=== PATIENT | male | born 1950 | race Caucasian/White ===

== ENCOUNTER 2023-12-31 15:21 | Emergency (ER) | payer SELFPAY ==
--- NOTE | ~2023-12-31 | XR_ITS ---
EXAM: XR foot LT min 3V DATE: 12/31/2023 16:06 HISTORY: infected toe, 2ND DIGIT . COMPARISON: None available. FINDINGS: Normal mineralization. No fracture or dislocation. No lytic or blastic lesion. Moderate Ac hilles enthesopathy. Mild degenerative changes at the first MTP joint and multiple midfoot joints. No erosion or periosteal change. Vascular calcifications. IMPRESSION: No acute osseous finding in the left foot. Specifically there is no radiographic evidence of osteomyelitis. Reviewed, dictated and finalized at location K. SERVICE FLOORPERSON
[2023-12-31 15:23] VITALS: BP 101/65; PULSE 80; RESP 20; TEMP 36; O2SAT 100
--- NOTE | 2023-12-31 15:41 | ED.GENADULT ---
HPI - General Adult General Chief complaint: Wound/Laceration <Jennifer Vernon APRN - Last Filed: 12/31/23 15:43> Stated complaint: infected foot <Jennifer Vernon APRN - Last Filed: 12/31/23 15:43> Time Seen by Provider: 12/31/23 15:41 <Jennifer Vernon SEPARATOR OPERATOR - Last Filed: 12/31/23 15:43> Focused HPI: Charmaine Ortega is a 73 y/o male who presents with complains of left second toe infection for about 2 weeks, he states he has a hx of DM but does not take any medications. GENERAL: Well-appearing, well-nourished, and in no acute distress. HEAD: Normocephalic, atraumatic. CHEST: Clear to auscultation. ?No respiratory distress. HEART: Regular rate and rhythm.? NEURO: ?Alert and oriented x3. Patient screened in triage and initial orders placed.? ?Additional care and disposition to be based upon?diagnostic testing and treatment. <Jennifer Vernon SEPARATOR OPERATOR - Last Filed: 12/31/23 15:43> History of Present Illness HPI narrative: Patient is a 73-year-old male who presents ER with a wound to his left 2nd toe. It has been developing over last 2 weeks. He is wearing some ill-fitting shoes but has since thrown those waves and got new ones. He reports that he was walking around when he stopped at a restoration test for help. He is currently homeless. He is a . [facility]. No fevers or chills or sweats. Denies thick purulent drainage. No lymphangitic streaking. <Joaquín De La Cruz MD - Last Filed: 12/31/23 17:28> Related Data Allergies/adverse reactions: Allergies Allergy/AdvReac Type Severity Reaction Status Date / Time No Known Allergies Allergy Verified 12/31/23 16:33 <Jennifer Vernon APRN - Last Filed: 12/31/23 15:43> Review of Systems Review of Systems: All systems reviewed & are unremarkable except as noted in HPI and below <Joaquín De La Cruz MD - Last Filed: 12/31/23 17:28> Constitutional: Constitutional: Denies chills, Denies fatigue and Denies fever(s) <Joaquín De La Cruz MD - Last Filed: 12/31/23 17:28> Cardiovascular: Cardiovascular: Denies chest pain, Denies rapid heart rate and Denies radiating jaw, neck or arm pain <Joaquín De La Cruz MD - Last Filed: 12/31/23 17:28> Respiratory: Respiratory: Denies cough and Denies dyspnea <Joaquín De La Cruz MD - Last Filed: 12/31/23 17:28> Integumentary/Breasts: Skin/Breast: Denies pruritus, Denies erythema, Denies rash and Reports skin ulcer <Joaquín De La Cruz MD - Last Filed: 12/31/23 17:28> [facility] Past Medical History Medical History: Medical History (Updated 12/31/23 @ 17:25 by Joaquín De La Cruz MD) Diabetes <Jennifer Vernon, SEPARATOR OPERATOR - Last Filed: 12/31/23 15:43> Social History Social History: Social History (Updated 12/31/23 @ 17:25 by Joaquín De La Cruz MD) Social History: , homeless <Jennifer Vernon, SEPARATOR OPERATOR - Last Filed: 12/31/23 15:43> Exam Narrative: GENERAL: Well-appearing, well-nourished, and in no acute distress. HEAD: Normocephalic, atraumatic. CHEST: Clear to auscultation. No respiratory distress. HEART: Regular rate and rhythm. Normal peripheral pulses. EXTREMITIES: Normal range of motion. Mild edema to the dorsum left foot compared to the right. SKIN: Warm, dry, no rash. ulceration of the 2nd toe on the dorsal aspect medially. No exposure bone. No purulent drainage there is some yellow weeping. Mild breakdown of the skin around it where there is slight erythema but no overt warmth. No lymphangitic streaking. NEURO: Alert and oriented x3. PSYCH: Normal mood and affect. <Joaquín De La Cruz MD - Last Filed: 12/31/23 17:28> Course Course Emergency Course: Labs reassuring. Blood sugar normal. Will start outpatient oral medication for this wound. He will need follow-up with wound care and I have given the phone number. He also reports he will try to call a doctor at [facility] where he gets his care. <Joaquín De La Cruz MD - Last Filed: 12/31/23 17:2
--- NOTE | 2023-12-31 16:27 | PC.NURSE ---
started IV and obtained blood work. pt demanding IV be taken out due to discomfort. IV removed. blood sent to lab.
[2023-12-31 16:32] LABS: Basophils Absolute Auto 0.1 K/mm3 (0.0-0.1); Basophils Percent Auto 0.8 % (0.2-1.2); Eosinophils Absolute Auto 0.2 K/mm3 (0-0.3); Eosinophils Percent Auto 2.5 % (0-4.4); Hematocrit 39.5 % (42.0-52.0); Hemoglobin 12.5 g/dL (14.0-18.0); Immature Granulocyte Absolute 0.06 K/mm3 (0.00-0.031); Immature Granulocyte Percent A 0.6 % (0-0.5); Lymphocytes Absolute Auto 3.02 K/mm3 (0.9-3.2); Lymphocytes Percent Auto 31.7 % (18.3-44.2); Mean Corpuscular HGB Conc 31.6 g/dl (32-36); Mean Corpuscular Hemoglobin 30.3 pg (26-34); Mean Corpuscular Volume 95.6 fl (80-100); Mean Platelet Volume 9.4 fl (7.4-10.4); Monocytes Absolute Auto 0.7 K/mm3 (0.1-0.6); Neutrophils Absolute Auto 5.5 K/mm3 (1.3-6.7); Neutrophils Percent Auto 57.4 % (45.5-73.1); Platelet Count Result 262 k/mm3 (150-375); Red Blood Count 4.13 M/mm3 (4.6-6.20); Red Cell Distribution Width 14.2 % (11.5-14.5); White Blood Count 9.5 K/mm3 (4.5-10.0)
[2023-12-31 16:42] LABS: Alanine Aminotransferase 14 U/L (6-50); Albumin Level 3.7 g/dL (3.5-5.1); Alkaline Phosphatase 94 U/L (38-126); Anion Gap 5 mmol/L (8-16); Aspartate Amino Transferase 18 U/L (17-59); Bilirubin,Total 0.6 mg/dL (0.2-1.3); Blood Urea Nitrogen 12 mg/dL (9-20); Calcium 9.1 mg/dL (8.4-10.2); Carbon Dioxide 28 mmol/L (22-30); Chloride 103 mmol/L (98-107); Estimated Glomerular Filt Rate > 60; Glucose 110 mg/dL (65-110); Potassium 3.7 mmol/L (3.4-5.0); Sodium 136 mmol/L (137-145)
[2023-12-31 16:43] LABS: Lactic Acid Reflex 1.8 mmol/L (0.7-2.0)
== END 2023-12-31 17:47 | disposition home or self-care (01) ==
LOC: ANHED 17:22
PROVIDERS: Nurse Practitioner Family; Emergency Provider Emergency Medicine
DX: E11.621 Type 2 diabetes mellitus with foot ulcer (principal); L97.529 Non-pressure chronic ulcer of other part of left foot with unspecified severity; Z59.00 Homelessness unspecified
CPT/HCPCS: 36415; 73630; 80053; 83605; 85025; 99283

== ENCOUNTER 2024-01-07 15:47 | Emergency (ER) | payer SELFPAY ==
[2024-01-07 15:51] VITALS: BP 122/67; PULSE 110; RESP 18; TEMP 36.5; O2SAT 97
--- NOTE | 2024-01-07 15:59 | ECG_ITS ---
Measurements Intervals [place] Rate: 93 P: 60 IL: 151 QRS: -9 QRSD: 80 T: 31 QT: 335 QTc: 418 Interpretive Statements SINUS RHYTHM BASELINE ARTIFACT- II, III, AVR, AVL, AVF NORMAL ECG NO PREVIOUS ECG AVAILABLE FOR COMPARISON Electronically Signed On 01-07-2024 17:05:28 CDT by Chago Cortes D.O.
[2024-01-07 16:42] LABS: Basophils Absolute Auto 0.1 K/mm3 (0.0-0.1); Basophils Percent Auto 1.2 % (0.2-1.2); Eosinophils Absolute Auto 0.1 K/mm3 (0-0.3); Eosinophils Percent Auto 0.6 % (0-4.4); Hematocrit 37.1 % (42.0-52.0); Hemoglobin 12.1 g/dL (14.0-18.0); Immature Granulocyte Absolute 0.11 K/mm3 (0.00-0.031); Immature Granulocyte Percent A 1.1 % (0-0.5); Lymphocytes Absolute Auto 2.45 K/mm3 (0.9-3.2); Mean Corpuscular HGB Conc 32.6 g/dl (32-36); Mean Corpuscular Hemoglobin 30.9 pg (26-34); Mean Corpuscular Volume 94.6 fl (80-100); Mean Platelet Volume 9.7 fl (7.4-10.4); Monocytes Absolute Auto 0.8 K/mm3 (0.1-0.6); Monocytes Percent Auto 8.6 % (2.6-8.5); Neutrophils Absolute Auto 6.2 K/mm3 (1.3-6.7); Neutrophils Percent Auto 63.5 % (45.5-73.1); Platelet Count Result 279 k/mm3 (150-375); Red Blood Count 3.92 M/mm3 (4.6-6.20); Red Cell Distribution Width 14.6 % (11.5-14.5); White Blood Count 9.8 K/mm3 (4.5-10.0)
[2024-01-07 16:49] LABS: Alanine Aminotransferase 21 U/L (6-50); Albumin Level 3.5 g/dL (3.5-5.1); Alkaline Phosphatase 102 U/L (38-126); Anion Gap 5 mmol/L (8-16); Aspartate Amino Transferase 29 U/L (17-59); Blood Urea Nitrogen 18 mg/dL (9-20); Calcium 9.1 mg/dL (8.4-10.2); Carbon Dioxide 26 mmol/L (22-30); Chloride 106 mmol/L (98-107); Estimated CRCL calculation 63 ml/min; Estimated Glomerular Filt Rate > 60; Glucose 103 mg/dL (65-110); Sodium 137 mmol/L (137-145)
[2024-01-07 16:50] LABS: Acetaminophen < 10 ug/mL (10-30); Ethanol < 10 mg/dL (<10); Salicylate < 1.0 mg/dL (2-20)
[2024-01-07 17:15] LABS: SARS-CoV-2 RNA PCR Negative (Negative)
[2024-01-07 17:30] LABS: Appearance Urine Clear (Clear); Bilirubin Urine Negative (Negative); Blood Urine Negative (Negative); Color Urine Yellow (Yellow); Glucose Urine UA Negative (Negative); Ketones Urine Negative (Negative); Leukocyte Esterase Ur Negative LEU/UL (Negative); Nitrate Urine Negative (Negative); Protein Urine Negative (Negative); Specific Grav Ur 1.023 (1.001-1.035); pH Urine 6.5 (5.0-9.0)
--- NOTE | 2024-01-07 17:34 | ED.GENADULT ---
[facility] - General Adult General Chief complaint: Psychiatric Symptoms Stated complaint: S/I Time Seen by Provider: 01/07/24 16:59 Source: patient Mode of arrival: ambulatory Limitations: no limitations History of Present Illness [facility] narrative: This is a 73-year-old male who presents to the ED with chief complaint of suicidal ideation. Patient is currently homeless. [facility]. States that they told him they could not help him and this was very upsetting to him. Reports that this caused him to feel like he wants to his life now. When asked about a plan, he states he just wants it to be quite. He denies any specific plan. Denies any history of suicidal ideation or attempts. Denies any previous admissions to psychiatric facilities. Denies firearm ownership. Denies homicidal ideation. Denies delusions, hallucinations. Denies medical complaints Related Data Allergies Allergy/AdvReac Type Severity Reaction Status Date / Time No Known Allergies Allergy Verified 01/07/24 15:47 Review of Systems Review of Systems: All systems as dictated in [facility] Past Medical History Medical History (Updated 01/08/24 @ 00:01 by Yesy Real) Diabetes Social History Social History (Updated 12/31/23 @ 17:25 by Joaquín De La Cruz MD) Social History: , homeless Substance use type: does not use Exam Narrative: GENERAL: Well-appearing, well-nourished, and in no acute distress. HEAD: Normocephalic, atraumatic. EYES: PERRLA and EOMI. ENT: Nares clear, no rhinorrhea or epistaxis. Mucous membranes moist. Oropharynx without tonsillar hypertrophy exudate or other lesions. NECK: Supple. No adenopathy or masses. CHEST: No respiratory distress. Clear to auscultation. No wheezes rales or rhonchi HEART: Regular rate and rhythm. No murmur heard. Normal peripheral pulses. ABDOMEN: Soft, nontender, nondistended, normal active bowel sounds. MSK: Normal range of motion. No edema. SKIN: Warm, dry, no rash. Mild erythema noted to the 3rd digit of the left foot. NEURO: Alert and oriented x3. No focal deficits. PSYCH: Positive suicidal ideation. Negative for plan. Negative homicidal ideation. No hallucination delusion. Conversational and cooperative. Course Vital Signs Vital signs: Vital Signs Temperature 97.7 F 01/07/24 15:51 Pulse Rate 110 H 01/07/24 15:51 Respiratory Rate 18 01/07/24 15:51 Blood Pressure 122/67 01/07/24 15:51 Pulse Oximetry 97 01/07/24 15:51 Oxygen Delivery Room Air 01/07/24 15:51 Temperature 97.7 F 01/07/24 15:51 Pulse Rate 88 01/07/24 21:06 Respiratory Rate 15 01/07/24 21:06 Blood Pressure 124/86 01/07/24 21:06 Pulse Oximetry 100 01/07/24 21:06 Oxygen Delivery Room Air 01/07/24 15:51 Medical Decision Making MDM Narrative Medical decision making narrative: This is a 73-year-old male who presents to the ED with chief complaint passive suicidal ideations. This happened today [facility]. He has been homeless for some time. He denies any plan to me. No history of psychiatric illness or inpatient evaluation. A lab work unremarkable. patient has been medically cleared for psychiatric evaluation. Psychiatric crisis team was able to evaluate the patient. They do not feel that he needs to be admitted for inpatient evaluation. According to their evaluation, he has settled down from earlier and is not feeling a suicidal anymore. Crisis team feels comfortable with discharge home on a safety contract. I am in agreement with this. Feel that he is low risk. Shared decision making between patient, myself and crisis for safety contract discharge home. Pt will be discharged in stable condition. Return precautions given and supportive measures discussed. Pt is understanding and agreeable with plan for discharge and follow-up with PCP. Vi
[2024-01-07 17:37] LABS: Add Urine Microscopic? NO
[2024-01-07 17:50] LABS: Amphetamine Screen Urine Negative (Negative); Barbiturate Screen Urine Negative (Negative); Benzodiazepines Screen Urine Negative (Negative); Cannabinoid Screen Urine Negative (Negative); Cocaine Screen Urine Negative (Negative); Methadone Screen Urine Negative (Negative); Opiate Screen Urine Negative (Negative); Phencyclidine Screen Urine Negative (Negative)
[2024-01-07 21:06] VITALS: BP 124/86; PULSE 88; RESP 15; O2SAT 100
--- NOTE | 2024-01-08 16:47 | PCCCNOTE ---
Addendum entered by Jackie Jack RN 01/08/24 17:07: Part of the difficulty with sending him to a homeless [place] [facility] [place] is that he is on probation and isn't to leave the [place]. Call also placed to [facility] ([phone]) to see if they have room tonight at the [place] location. Only able to leave message which was done requesting a return call. Original Note: Call received from security requesting assistance with homeless man who spent night in ER waiting room. Pt is a who has a automation test engineer. Amara is her name [phone]. Call placed and message left. No answer received from her all day. Call placed to [place] Homeless coordinator [phone] who gave me Amara's name. Call placed to Ivette at the [employer]. She stated pt is known to her and that if she was contacted about him, she was to call the commander. She stated she would do that and have him call. She also recommended calling the homeless [place] [facility] hotline ([phone]). Call placed and spoke with Kemi who works with Amara. She stated Amara has been out of the office today and she tried to contact Amara's design supervisor who is out of the office today. Pt states he has an appointment 01/08 with someone somewhere but doesn't know where. Calls also placed to [facility] [phone] who also referred to Amara. Kemi recommended calling [facility] [facility] ([phone]). Call placed and returned from Manish. She states pt had an appointment with Amara today and informed Manish we haven't been able to contact Amara. Manish called back later and stated she can get him to his appointment tomorrow but she doesn't know where that is and that she can have someone here after 9 am to pick him up. Spoke to firer powerhouse and she recommended supplying pt with a cab voucher to [place] but since I can not find out where that appointment is, I can't supply an address.
--- NOTE | 2024-01-09 09:14 | PCCCNOTE ---
Contacted by [facility] [place] [place] [facility] Mr Rowe regarding Charmaine Mckeon. He communicated that Mr Mckeon has been in contact with them immediately after his incarceration. Unfortunately they can not help pt d/t him having a skilled nursing and SS. He stated that Mr Mckeon needed to work through the [facility] and [facility] to restart benefits.
--- NOTE | 2024-01-09 11:55 | PCCCNOTE ---
He Rabago from [facility] came to ED department and is taking pt with him to find [facility] services.
== END 2024-01-07 21:06 | disposition home or self-care (01) ==
PROVIDERS: Emergency Medicine; Emergency Provider Physician Assistant
DX: R45.851 Suicidal ideations (principal); Z59.00 Homelessness unspecified; E11.9 Type 2 diabetes mellitus without complications
CPT/HCPCS: 36415; 80053; 80307; 81003; 84443; 85025; 87635; 93005; 99284